=== PATIENT | male | born 1965 | race American Indian/Alaskan Native ===

== ENCOUNTER 2021-02-12 17:37 | Emergency (ER) | payer SELFPAY ==
[2021-02-12] MEDS ORDERED: diazePAM 10 MG/2 ML SYRINGE IV ONE (20:29)
[2021-02-12] MEDS ORDERED: LACTATED RINGERS 1,000 ML IV ONE (20:30)
[2021-02-12] MEDS ORDERED: LORazepam 2 MG/ML VIAL IV PRN ×3 (20:30)
--- NOTE | 2021-02-12 20:33 | Emergency Department Report ---
ED General Adult HPI - General Chief complaint: Seizure Stated complaint: SEIZURE PUI?: No Time Seen by Provider: 02/12/21 19:51 Source: patient, EMS ( EMS documentation not available at time of chart dictation ), RN notes reviewed Mode of arrival: Ambulatory Limitations: No Limitations - History of Present Illness Initial comments: The patient was evaluated in the emergency department for symptoms described in the history of present illness. He/she was evaluated in the context of the global COVID-19 pandemic, which necessitated consideration that the patient might be at risk for infection with the virus that causes COVID-19. Institutional protocols and algorithms that pertain to the evaluation of patients at risk for COVID-19 are in a state of rapid change based on information released by regulatory bodies including the CDC and federal and state organizations. These policies and algorithms were followed during the patient's care in the emergency department. Please note that these policies, procedures and recommendations changed on a rapid basis. Past medical history: Stimulant use disorder, cocaine, alcohol use disorder, schizophrenia, unspecified housing or economic problems, problems related to other legal circumstances, HIV positive, unknown CD4 count/viral load, currently on Biktarvy Primary CARE provider: Anny Pacheco This is a 55-year-old gentleman. He is not known to myself previously. He is brought to the hospital by emergency medical services with a complaint of possible seizure. The patient himself denies physical pain. He thinks he may have had a seizure but he is not sure. The patient denies headache, neck pain, chest pain, abdominal pain, shortness of breath. He denies cough and urinary symptoms, loss of taste and smell. He is also not homicidal or suicidal. The patient does report that she feels shaky, jittery and somewhat anxious. The patient is not accompanied by friends or family at this time for collateral information. The patient states he was typically homeless, and he is currently at a [facility] facility. The patient states he was previously incarcerated, and subsequently discharged. -: Sudden Consistency: now resolved Improves with: none Worsens with: none - Related Data Previous Rx's Medication Instructions Recorded Last Taken Type Multivitamin with Folic Acid [[facility]vs 400 mcg PO QDAY #30 tablet 02/12/21 Unknown Rx One Daily Essential Tablet] chlordiazePOXIDE [Librium] 25 mg PO Q6H PRN #25 capsule 02/12/21 Unknown Rx levETIRAcetam [Keppra TAB] 500 mg PO BID #60 tablet 02/12/21 Unknown Rx Allergies Allergy/AdvReac Type Severity Reaction Status Date / Time No Known Allergies Allergy Unverified 02/12/21 19:40 ED Review of Systems ROS: Stated complaint: SEIZURE Other details as noted in HPI Constitutional: other (Denies loss of taste and smell). denies: fever Eyes: denies: eye discharge ENT: denies: epistaxis Respiratory: cough (Chronic cough) Cardiovascular: denies: chest pain Gastrointestinal: denies: abdominal pain Genitourinary: denies: dysuria Neurological: weakness Psychiatric: anxiety. denies: auditory hallucinations, visual hallucinations, homicidal thoughts, suicidal thoughts ED Past Medical Hx - Past Medical History Hx Hypertension: Yes Hx HIV: Yes Additional medical history: ETOH, cocain - Social History Smoking Status: Current Every Day Smoker Substance Use Type: Alcohol, Cocaine - Medications Home Medications: Home Medications Medication Instructions Recorded Confirmed Last Taken Type Multivitamin with Folic Acid [Cvs 400 mcg PO QDAY #30 tablet 02/12/21 Unknown Rx One Daily Essential Tablet] chlordiazePOXIDE [Librium] 25 mg PO Q6H PRN #25 capsule 02/12/21 Unknown Rx levETIRAcetam [Keppra TAB] 500 mg PO BID #60 tablet 02/12/21 Unknown Rx ED Physical Exam - General Limitations: No Limitations, Other (Patient anxious and tremulous. Patient found to have tongue fasciculations.) General appearance: alert, anxious - Head Head exam: Present: atraumatic, normocephalic - Eye Eye exam: Present: normal appearance, PERRL, EOMI, other (Visual acuity intact to finger counting, color perception, reading at a close distance). Absent: n ystagmus - ENT ENT exam: Present: normal exam, mucous membranes dry, normal external ear exam - Neck Neck exam: Present: normal inspection, full ROM. Absent: tenderness, meningismus - Respiratory Respiratory exam: Present: normal lung sounds bilaterally. Absent: respiratory distress, wheezes, rales, rhonchi, stridor, decreased breath sounds - Cardiovascular Cardiovascular Exam: Present: normal rhythm, tachycardia, normal heart sounds. Absent: systolic murmur, diastolic murmur, rubs, gallop - GI/Abdominal GI/Abdominal exam: Present: soft. Absent: distended, tenderness, guarding, rebound, rigid, pulsatile mass - Rectal Rectal exam: Present: deferred - Extremities Exam Extremities exam: Present: normal inspection, full ROM, other (2+ pulses noted in the bilateral upper and lower extremities. There is no palpable cord. negative Homans sign. Muscular compartments are soft. The pelvis is stable.). Absent: pedal edema, calf tenderness - Back Exam Back exam: Present: normal inspection, full ROM. Absent: tenderness, CVA tenderness (R), CVA tenderness (L), paraspinal tenderness, vertebral tenderness - Neurological Exam Neurological exam: Present: alert, oriented X3, other (No facial droop. Tongue midline. Extraocular movements intact bilaterally. Facial sensation intact to light touch in V1, V2, V3 distribution bilaterally. 5 and a 5 strength in 4 extremities. Sensation intact to light touch in 4 extremities.). Absent: motor sensory deficit - Psychiatric Psychiatric exam: Present: anxious. Absent: homicidal ideation, suicidal ideation - Skin Skin exam: Present: warm, dry, intact, normal color. Absent: rash ED Course Vital Signs 02/12/21 21:27 Temperature 98.2 F Pulse Rate 100 H Respiratory 18 Rate Blood Pressure 123/81 [Left] O2 Sat by Pulse 97 Oximetry - Reevaluation(s) Reevaluation #1: 02/12/21 21:46 Differential diagnosis, including but not limited to: Seizure, alcohol withdrawal seizure, electrolyte derangement, dehydration, intracranial mass lesion Assessment and plan: 55-year-old gentleman, who is clinically sober, with a GCS of 15, nonfocal motor examination, clinically sober, who is not homicidal, not suicidal, with tachycardia, tongue fasciculations, and upper extremity tremors, also HIV positive, unknown CD4 count or viral load. I suspect alcohol withdrawal seizure. Place patient on alcohol withdrawal protocol. Will load patient with Valium, IV fluids, banana bag, obtain appropriate laboratory studies, x-ray the chest, EKG, urinalysis, CT scan of the brain, with and without contrast, and reassess after initial data points. Have discussed this plan of care with the patient, who verbalized understanding, and is amenable to this plan of care. 02/12/21 23:38 Patient is reassessed. Heart rate 90 bpm. Blood pressure 118/76. Patient sleeping comfortably in stretcher, and in no acute distress. Tachycardia resolved. Tremors resolved. Tongue fasciculations resolved. CT scan of the brain unremarkable. Patient does not appear to have an emergent medical condition at this time which would require admission to the hospital. When I initially evaluated the patient, he is awake, alert, oriented, sober, without meningeal signs, and presentation not suggestive or consistent with intracranial infection. We will start him on multivitamins, Keppra, Librium, he will need to follow-up with an outpatient neurologist or primary care doctor. ED Medical Decision Making - Lab Data Result diagrams: 02/12/21 20:44 02/12/21 20:44 Lab Results 02/12/21 Range/Units 20:44 Plasma/Serum Alcohol < 0.01 (0-0.07) % Vital Signs 02/12/21 21:27 Temperature 98.2 F Pulse Rate 100 H Respiratory 18 Rate Blood Pressure 123/81 [Left] O2 Sat by Pulse 97 Oximetry - EKG Data -: EKG Interpreted by Ak EKG shows normal: sinus rhythm Rate: normal - EKG Data 02/12/21 21:46 EKG interpreted at 19: 57 Sinus rhythm, 99 bpm. Normal axis, normal intervals, high left ventricular voltage. No endorsement of chest pain. This is an abnormal EKG. There is no prior for comparison. This EKG is not a STEMI. - Radiology Data Radiology results: pending, report reviewed, image reviewed [facility] [address] [place] [address] XRay Report Signed Patient: MAKENZIE ZHAO MR#: [id number] : 1965 Acct:[id number] Age/Sex: 55 / M ADM Date: 02/12/21 Loc: ED Attending Dr: Ordering Physician: JOSÉ CONWAY MD Date of Service: 02/12/21 Procedure(s): XR chest 1V ap Accession Number(s): [id number] cc: JOSÉ CONWAY MD [facility] In Minutes: CHEST 1 VIEW 02/12/2021 8:26 PM INDICATION / CLINICAL INFORMATION: seizure EtOH withdrawal,. COMPARISON: None available. FINDINGS: SUPPORT DEVICES: None. HEART / MEDIASTINUM: No significant abnormality. LUNGS / PLEURA: No significant pulmonary or pleural abnormality. No pneumothorax. ADDITIONAL FINDINGS: No significant additional findings. IMPRESSION: 1. No acute findings. Signer Name: Rhonda Hahn MD Signed: 02/12/2021 9:36 PM Workstation Name: [id number] Transcribed By: VICENTE Dictated By: Alex Hahn MD Electronically Authenticated By: Alex Hahn MD Signed Date/Time: 02/12/212135 DD/ 35 [facility] [address] [id number] Cat Scan Report Signed Patient: MAKENZIE ZHAO MR#: [id number] : 1965 Acct:[id number] Age/Sex: 55 / M ADM Date: 02/12/21 Loc: ED Attending Dr: Ordering Physician: JOSÉ CONWAY MD Date of Service: 02/12/21 Procedure(s): CT head/brain wo/w con Accession Number(s): [id number] cc: JOSÉ CONWAY MD NONENHANCED AND CONTRAST-ENHANCED CT SCAN OF THE HEAD: INDICATION / CLINICAL INFORMATION: 55 years Male; seizure, etoh withdrawal, hiv +. 60 mL of Omnipaque 300 TECHNIQUE: Routine CT head without contrast. All CT scans at this location are performed using CT dose reduction for ALARA by means of automated exposure control. COMPARISON: None. FINDINGS: BRAIN / INTRACRANIAL CONTENTS: No acute hemorrhage, mass effect, midline shift, hydrocephalus, or acute, large territorial infarct. No chronic infarct or focal atrophy. Normal brain volume and ventricular/sulcal size for age. No significant white matter abnormality. No enhancing lesion in the brain Ventricular system is normal. No hydrocephalus No space taking lesion or focal parenchymal lesion in the brain; Cohn matter white matter in the basal ganglia are normal; no enhancing lesion in the brain CRANIOCERVICAL JUNCTION: No significant abnormality. ORBITS: No significant ab normality of visualized orbits. SINUSES / MASTOIDS: No significant abnormality of the visualized paranasal sinuses or mastoid air cells. ADDITIONAL FINDINGS: None. IMPRESSION: Normal nonenhanced and contrast-enhanced CT scan of the brain; no enhancing focal parenchymal lesion; periventricular and deep hemispheric white matter normal; no hydrocephalus Signer Name: Timothy Pressley MD S igned: 02/12/2021 10:48 PM Workstation Name: [id number] Transcribed By: ADRIÁN Dictated By: Timothy Jara MD Electronically Authenticated By: Timothy Jara MD Signed Date/Time: 02/12/212247 DD/ 43 Critical care attestation.: If time is entered above; I have spent that time in minutes in the direct care of this critically ill patient, excluding procedure time. ED Disposition Clinical Impression: History of seizure, History of HIV infection, History of alcohol use Disposition: DC-01 TO HOME OR SELFCARE Is pt being admited?: No Does the pt Need Aspirin: No Condition: Good Instructions: How to Care for Yourself When You Have HIV, Seizure, Adult, [id number], Substance Use Disorder Additional Instructions: Recommend that the patient not drive or operate motor vehicles for the next 6 months, or until cleared to do so by a primary care doctor or neurologist. Recommend following up with a primary care doctor or neurologist within the next week. For the patient's convenience, numerous local primary care doctors and neurologist have been listed that he may follow-up with. Recommend that patient have a primary care doctor or neurologist contact medical records department, and obtain copies of laboratory studies, radiology studies and medical records, to follow-up on nonemergent incidental abnormal findings. Recommend that patient avoid consumption of alcohol, and recreational drugs. Please return to the emergency room right away with new pain, worsened pain, migration of pain, projectile vomiting, change in mental status, confusion, inability to tolerate liquid feeds, new, worsened or different symptoms not present on the initial emergency room evaluation. Take the multivitamin as directed, Librium medication as needed for sensation of alcohol withdrawal, and Keppra medication as needed. We suspect that the patient may have had tremor/convulsion likely secondary to alcohol withdrawal. We also recommend follow-up with a primary care doctor infectious disease specialist or health department within the next month to 6 weeks for patient's history of HIV. Referrals: JUSTYN SWARTZ MD [Staff Physician] - 3-5 Days ESAU BIANCHI MD [Referring] - 3-5 Days MEMO BATISTA MD [Staff Physician] - 3-5 Days [facility] [Provider Group] - 3-5 Days [facility] [Outside] - 3-5 Days
[2021-02-12] MEDS ORDERED: THIAMINE 100 MG, FOLIC ACID 1 MG, MULTIPLE VITAMIN INJ, ADULT 10 ML in SODIUM CHLORIDE ... IV ONE (21:00)
[2021-02-12] MEDS ORDERED: THIAMINE 100 MG in SODIUM CHLORIDE 0.9% 50 ML IV ONE (21:00)
--- NOTE | 2021-02-12 21:41 | XRay Report ---
CHEST 1 VIEW 02/12/2021 8:26 PM INDICATION / CLINICAL INFORMATION: seizure EtOH withdrawal,. COMPARISON: None available. FINDINGS: SUPPORT DEVICES: None. HEART / MEDIASTINUM: No significant abnormality. LUNGS / PLEURA: No significant pulmonary or pleural abnormality. No pneumothorax. ADDITIONAL FINDINGS: No significant additional findings. IMPRESSION: 1. No acute findings. Signer Name: Rhonda Hahn MD Signed: 02/12/2021 9:36 PM Workstation Name: [id number]
[2021-02-12 21:47] LABS: Albumin 4.6 g/dL (3.9-5); Calcium 9.5 mg/dL (8.4-10.2)
[2021-02-12 21:51] LABS: Basophils % (Auto) 0.2 % (0.0-1.8); Eosinophils # (Auto) 0.1 K/mm3 (0.0-0.4); Eosinophils % (Auto) 0.4 % (0.0-4.3); Hemoglobin 14.3 gm/dl (11.8-15.2); Lymphocytes # (Auto) 1.4 K/mm3 (1.2-5.4); Lymphocytes % (Auto) 10.2 % (13.4-35.0); Mean Corpuscular HGB Conc 35 % (32-34); Mean Corpuscular Volume 88 fl (84-94); Monocytes # (Auto) 0.4 K/mm3 (0.0-0.8); Monocytes % (Auto) 3.1 % (0.0-7.3); Platelet Count 209 K/mm3 (140-440); Red Blood Count 4.66 M/mm3 (3.65-5.03); Red Cell Distribution Width 13.5 % (13.2-15.2)
[2021-02-12 21:58] LABS: Amphetamine Screen,Urine Negative; Benzodiazepines Screen,Urine Negative; Bilirubin,Urine NEG (Negative); Blood,Urine NEG (Negative); Cannabinoid Screen,Urine Negative; Cocaine Screen,Urine Negative; Color,Urine Yellow (Yellow); Hyaline Casts,Urine 1 /LPF; Methadone Screen,Urine Negative; Opiate Screen,Urine Negative; Urobilinogen,Urine < 2.0 mg/dL (<2.0)
[2021-02-12 21:59] LABS: INR 1.19 (0.87-1.13); Partial Thromboplastin Time 25.2 Sec. (24.2-36.6)
--- NOTE | 2021-02-12 22:52 | Cat Scan Report ---
NONENHANCED AND CONTRAST-ENHANCED CT SCAN OF THE HEAD: INDICATION / CLINICAL INFORMATION: 55 years Male; seizure, etoh withdrawal, hiv +. 60 mL of Omnipaque 300 TECHNIQUE: Routine CT head without contrast. All CT scans at this location are performed using CT dos e reduction for ALARA by means of automated exposure control. COMPARISON: None. FINDINGS: BRAIN / INTRACRANIAL CONTENTS: No acute hemorrhage, mass effect, midline shift, hydrocephalus, or acute, large territorial infarct. No chronic infarct or focal atrophy. Normal brain volume and ventricular/sulcal size for age. No sig nificant white matter abnormality. No enhancing lesion in the brain Ventricular system is normal. No hydrocephalus No space taking lesion or focal parenchymal lesion in the brain; Cohn matter white matter in the basa l ganglia are normal; no enhancing lesion in the brain CRANIOCERVICAL JUNCTION: No significant abnormality. ORBITS: No significant abnormality of visualized orbits. SINUSES / MASTOIDS: No significant abnormality of the visualized paranasal sinuses or mastoid air linnette ls. ADDITIONAL FINDINGS: None. IMPRESSION: Normal nonenhanced and contrast-enhanced CT scan of the brain; no enhancing focal parenchymal lesion ; periventricular and deep hemispheric white matter normal; no hydrocephalus Signer Name: Timothy Pressley MD Signed: 02/12/2021 10:48 PM Workstation Name: [id number]
[2021-02-12] MEDS ORDERED: levETIRAcetam 1000 MG/NS 0.75% 1,000 MG/100 ML BAG IV ONE (23:38)
[2021-02-13 00:08] VITALS: BP 134/87
--- NOTE | 2021-02-14 10:38 | Electrocardiograph Report ---
[facility] Test Date: 2021-02-12 Test Time: 19:56:09 Pat Name: MAKENZIE ZHAO Department: Room: Gender: M Marketing Trainee: SAMSON : 1965 Requested By: JOSÉ CONWAY Order Number: [id number] Reading MD: Gurinder Bianchi Measurements Intervals [place] Rate: 99 P: 69 UT: 171 QRS: 62 QRSD: 102 T: 40 QT: 335 QTc: 431 Interpretive Statements Sinus rhythm No previous ECG available for comparison Electronically Signed On 02-14-2021 10:37:49 EDT by Gurinder Bianchi
== END 2021-02-13 | disposition home or self-care (01) ==
LOC: ED 17:37
DX: G40.909 Epilepsy, unspecified, not intractable, without status epilepticus (principal); I10 Essential (primary) hypertension; F17.200 Nicotine dependence, unspecified, uncomplicated; F14.90 Cocaine use, unspecified, uncomplicated; Z79.899 Other long term (current) drug therapy; Z21 Asymptomatic human immunodeficiency virus [HIV] infection status; Z87.898 Personal history of other specified conditions
CPT/HCPCS: 36415; 70470; 71045; 80053; 80307; 81001; 82550; 83735; 84443; 85025; 85610; 85730; 96361; 96374; 96375; 99285; J3360; J3411; J7030; J7120; Q9967; 80320; 93005; G0480